=== PATIENT | male | born 1955 | race Two or more races ===

== ENCOUNTER 2018-10-31 07:46 | Day surgery (SDC) | payer OTHER | END 2018-10-31 13:40 | disposition home or self-care (01) | LOC: AMB-ENDOS 07:46 | DX: K63.5 Polyp of colon (principal) ==

== ENCOUNTER 2021-05-26 09:00 | Outpatient (CLI) | payer OTHER | END 2021-05-26 09:30 | disposition home or self-care (01) | LOC: PPH VACUNA 09:00 | PROVIDERS: ATTEND Emergency Medicine Pediatric Emergency Medicine | DX: Z23 Encounter for immunization (principal) ==